=== PATIENT | male | born 1945 | race Caucasian/White ===

== ENCOUNTER → 2017-04-10 | Outpatient (CLI) | payer MEDICARE, OTHER ==
[~2017-04-10] MED LIST: ASPIRIN 81MG TA81 MG PO; ATORVASTATIN CA10 M1 PO; CENTRUM SILVER1 TAB PO; CHOLESTYRA PO; CIPROFLOXACIN500 MG PO; CLOPIDOGREL75 M2 PO; CO-Q-10 100 MG-1 SGL PO; FLOMAX0.4 MG PO; LANSOPRAZOLE30 MG PO; LEVOFLOXACIN 5500 MG PO; LOSARTAN POTASS50 MG PO; METFORMIN ER500 MG PO; METFORMIN HYDR500 M1 PO; NORCO 325 MG-51 TAB PO; PROBIOTIC FORMU1 CA1 PO; PYRIDIUM 200MG200 MG PO; RAPAFLO4 MG PO; ZETIA10 MG PO; ZOFRAN ODT4 MG PO
--- NOTE | 2017-04-10 15:09 | RADIOLOGY REPORT PS360 ---
CHEST(2 VIEWS-NOT PORTABLE) HISTORY: FEVER,COUGH ORDERING PHYSICIAN: Yasmany Wood MD PATIENT AGE: 71 years COMPARISON: 08/02/2016 FINDINGS: There is mild cardiomegaly without failure. Coronary artery calcification and/or stent noted. No lobar consolidation or collapse. There is chronic coarsening of bronchovascular markings. No acute bony anomalies.. IMPRESSION: 1. Cardiomegaly without failure. 2. Chronic coarsening of the bronchovascular markings with no acute finding
== END ==
LOC: RAD 14:48
DX: R50.9 Fever, unspecified (principal); R51 Headache